=== PATIENT | female | born 1965 | race Caucasian/White ===

== ENCOUNTER 2023-09-30 12:16 | Outpatient (RCR) | payer MEDICARE, OTHER, SELFPAY | END 2023-09-30 23:59 | disposition home or self-care (01) | LOC: RPT 12:16 | PROVIDERS: ATTENDING PHYSICIAN Psychiatry & Neurology Neurology; PRIMARYCARE PHYSICIAN Student in an Organized Health Care Education/Training Program | DX: G35 Multiple sclerosis (principal); R26.89 Other abnormalities of gait and mobility; R29.6 Repeated falls | CPT/HCPCS: 97110; 97112; 97530 ==

== ENCOUNTER 2023-10-21 13:14 | Outpatient (RCR) | payer OTHER, SELFPAY | END 2023-10-21 23:59 | disposition home or self-care (01) | LOC: RPT 13:14 | PROVIDERS: ATTENDING PHYSICIAN Psychiatry & Neurology Neurology; PRIMARYCARE PHYSICIAN Student in an Organized Health Care Education/Training Program | DX: G35 Multiple sclerosis (principal); R26.89 Other abnormalities of gait and mobility; Z73.6 Limitation of activities due to disability; R29.6 Repeated falls | CPT/HCPCS: 97110; 97112 ==

== ENCOUNTER 2023-10-29 08:05 | Outpatient (RCR) | payer OTHER, SELFPAY ==
[2023-10-15] VITALS (10 sets, daily range): BP systolic 125–154; BP diastolic 68–81
[2023-10-15] MEDS: NSS 500 IV (08:27)
[2023-10-15] MEDS: TYLENOL 650 MG PO (08:29)
[2023-10-15 08:33] LABS: % Basophils 1.1 % (0-2); % Immature Granulocytes 0.2 % (0-0.5); % Lymphocytes 22.7 % (20.5-51.1); % Monocytes 8.8 % (1.7-9.3); % Neutrophils 63.2 % (42.2-75.2); Absolute Basophils 0.1 10^3/uL (0-0.2); Absolute Eosinophils 0.2 10^3/uL (0-0.7); Absolute Monocytes 0.4 10^3/uL (0.1-0.6); Absolute Neutrophils 2.8 10^3/uL (1.4-6.5); Hematocrit 38.5 % (37.0-47.0); Hemoglobin 13.2 g/dL (12.0-16.0); Mean Corp Hgb Conc. 34.3 g/dL (33.0-37.0); Mean Corpuscular Hgb 29.8 pg (27.0-31.0); Mean Corpuscular Volume 86.9 fL (81.0-99.0); Mean Platelet Volume 10.3 fL (7.4-10.4); Nucleated Red Blood Cells % 0 %; Platelet Count 228 10^3/uL (130-400); Red Blood Cell Count 4.43 10^6/uL (4.20-5.40); Red Cell Dist. Width 13.1 % (11.5-14.5); White Blood Cell Count 4.5 10^3/uL (4.8-10.8)
[2023-10-15] MEDS: SOLU-MEDROL PF 51.6000000000000014 MG IV (08:47)
[2023-10-15] MEDS: BENADRYL 51 MG IV (09:14)
[2023-10-15] MEDS: OCREVUS 260 MG IV (09:50)
[2023-10-29] VITALS (10 sets, daily range): BP systolic 104–134; BP diastolic 54–86
[2023-10-29 08:53] LABS: % Basophils 0.8 % (0-2); % Eosinophils 2.7 % (0-6); % Immature Granulocytes 0.2 % (0-0.5); % Lymphocytes 20.7 % (20.5-51.1); % Neutrophils 67.6 % (42.2-75.2); Absolute Eosinophils 0.1 10^3/uL (0-0.7); Absolute Monocytes 0.4 10^3/uL (0.1-0.6); Absolute Neutrophils 3.2 10^3/uL (1.4-6.5); Hematocrit 39.4 % (37.0-47.0); Hemoglobin 14.1 g/dL (12.0-16.0); Mean Corp Hgb Conc. 35.8 g/dL (33.0-37.0); Mean Corpuscular Hgb 30.2 pg (27.0-31.0); Mean Corpuscular Volume 84.4 fL (81.0-99.0); Mean Platelet Volume 10.4 fL (7.4-10.4); Nucleated Red Blood Cells % 0 %; Platelet Count 254 10^3/uL (130-400); Red Blood Cell Count 4.67 10^6/uL (4.20-5.40); Red Cell Dist. Width 12.8 % (11.5-14.5); White Blood Cell Count 4.7 10^3/uL (4.8-10.8)
[2023-10-29] MEDS: TYLENOL 650 MG PO (09:07)
[2023-10-29] MEDS: NSS 500 IV (09:08)
[2023-10-29] MEDS: SOLU-MEDROL PF 51.6000000000000014 MG IV (09:08)
[2023-10-29] MEDS: BENADRYL 51 MG IV (09:33)
[2023-10-29] MEDS: OCREVUS 260 MG IV (10:02)
== END 2023-11-10 23:59 | disposition home or self-care (01) ==
LOC: OID 08:05
PROVIDERS: ATTENDING PHYSICIAN Psychiatry & Neurology Neurology; FAMILY PHYSICIAN Student in an Organized Health Care Education/Training Program
DX: G35 Multiple sclerosis (principal)
CPT/HCPCS: 36415; 85025; 96360; 96361; 96365; 96366; 96367; 96413; 96415; J2350

== ENCOUNTER 2024-04-28 08:11 | Outpatient (RCR) | payer OTHER, SELFPAY ==
[2024-04-28] VITALS (11 sets, daily range): BP systolic 117–132; BP diastolic 66–76
[2024-04-28 09:05] LABS: % Basophils 1.2 % (0-2); % Eosinophils 5.2 % (0-6); % Immature Granulocytes 0.2 % (0-0.5); % Lymphocytes 26.7 % (20.5-51.1); % Monocytes 7.5 % (1.7-9.3); % Neutrophils 59.2 % (42.2-75.2); Absolute Basophils 0.1 10^3/uL (0-0.2); Absolute Eosinophils 0.2 10^3/uL (0-0.7); Absolute Lymphocytes 1.1 10^3/uL (1.2-3.4); Absolute Monocytes 0.3 10^3/uL (0.1-0.6); Absolute Neutrophils 2.4 10^3/uL (1.4-6.5); Hematocrit 41.1 % (37.0-47.0); Hemoglobin 14.2 g/dL (12.0-16.0); Mean Corp Hgb Conc. 34.5 g/dL (33.0-37.0); Mean Corpuscular Hgb 29.4 pg (27.0-31.0); Mean Corpuscular Volume 85.1 fL (81.0-99.0); Mean Platelet Volume 10.7 fL (7.4-10.4); Nucleated Red Blood Cells % 0 %; Platelet Count 277 10^3/uL (130-400); Red Blood Cell Count 4.83 10^6/uL (4.20-5.40); Red Cell Dist. Width 12.8 % (11.5-14.5)
[2024-04-28] MEDS: NSS 500 IV (09:17)
[2024-04-28] MEDS: TYLENOL 650 MG PO (09:17)
[2024-04-28] MEDS: SOLU-MEDROL PF 51.6 MG IV (09:18)
[2024-04-28] MEDS: BENADRYL 51 MG IV (09:43)
[2024-04-28] MEDS: OCREVUS 520 MG IV (10:13)
== END 2024-05-01 08:02 | disposition home or self-care (01) ==
LOC: OID 08:11
PROVIDERS: ATTENDING PHYSICIAN Psychiatry & Neurology Neurology; FAMILY PHYSICIAN Student in an Organized Health Care Education/Training Program
DX: G35 Multiple sclerosis (principal)
CPT/HCPCS: 36415; 85025; 96361; 96367; 96413; 96415; J2350

== ENCOUNTER → 2025-01-26 13:17 | Outpatient (REF) | payer OTHER, SELFPAY | LOC: PAVMRI 13:17 | PROVIDERS: ATTENDING PHYSICIAN Psychiatry & Neurology Neurology; FAMILY PHYSICIAN Student in an Organized Health Care Education/Training Program | DX: G35 Multiple sclerosis (principal) | CPT/HCPCS: 70553; 72156; A9575 ==

== ENCOUNTER → 2025-01-29 11:30 | Outpatient (REF) | payer OTHER, SELFPAY | LOC: PAVMRI 11:30 | PROVIDERS: ATTENDING PHYSICIAN Psychiatry & Neurology Neurology; FAMILY PHYSICIAN Student in an Organized Health Care Education/Training Program | DX: G35 Multiple sclerosis (principal) | CPT/HCPCS: 72157; A9575 ==

== ENCOUNTER → 2025-03-08 16:07 | Outpatient (REF) | payer OTHER, SELFPAY | LOC: WDC 16:07 | PROVIDERS: ATTENDING PHYSICIAN Student in an Organized Health Care Education/Training Program | DX: Z12.31 Encounter for screening mammogram for malignant neoplasm of breast (principal) | CPT/HCPCS: 77063; 77067 ==